=== PATIENT | male | born 1960 | race Caucasian/White ===

== ENCOUNTER → 2016-05-05 | Outpatient (CLI) | payer MEDICAID ==
--- NOTE | 2016-05-05 10:55 | CPEKG ---
Heart Rate: 86 RR Interval: 698 P-R Interval: 144 QRSD Interval: 98 QT Interval: 408 QTC Interval: 488 P Carlton: 79 QRS Carlton: 80 T Wave Carlton: 81 EKG Severity - ABNORMAL ECG - EKG Impression: SINUS RHYTHM Electronically Signed By: Yahir Estevez 05-May-2016 14:42:50
== END ==
LOC: FCP 10:44
PROVIDERS: ATTEND Surgery
DX: Z01.818 Encounter for other preprocedural examination (principal); R94.31 Abnormal electrocardiogram [ECG] [EKG]

== ENCOUNTER → 2016-05-12 | Day surgery (SDC) | payer MEDICAID ==
[~2016-05-12] MED LIST: BUPIVACAINE/EPI 0.5% 30 ML SDV ONE; SKIN ADHESIVE (DERMABOND) 1 EACH TP ONE
== END | disposition home or self-care (01) ==
LOC: FSGY 10:42
PROVIDERS: ATTEND Surgery
DX: Z53.29 Procedure and treatment not carried out because of patient's decision for other reasons (principal)

== ENCOUNTER 2016-05-25 13:58 | Emergency (ER) | payer MEDICAID ==
[2016-05-25 14:03] VITALS: PULSE 82; TEMP 97.9
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
[2016-05-25 15:38] VITALS: BP 129/97; RESP 18; O2SAT 92
== END 2016-05-25 15:38 | disposition home or self-care (01) ==
LOC: EEVIPCON 13:58
DX: S29.9XXA Unspecified injury of thorax, initial encounter (principal); J44.9 Chronic obstructive pulmonary disease, unspecified; I10 Essential (primary) hypertension; F17.200 Nicotine dependence, unspecified, uncomplicated; V28.0XXA Motorcycle driver injured in noncollision transport accident in nontraffic accident, initial encounter; Y99.8 Other external cause status; Y93.55 Activity, bike riding

== ENCOUNTER 2016-09-15 08:20 | Emergency (ER) | payer MEDICAID ==
[2016-09-15 08:29] VITALS: BP 136/98; PULSE 82; RESP 18; TEMP 97.3; O2SAT 92
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
== END 2016-09-15 09:15 | disposition home or self-care (01) ==
DX: S62.515A Nondisplaced fracture of proximal phalanx of left thumb, initial encounter for closed fracture (principal); F17.200 Nicotine dependence, unspecified, uncomplicated; V18.0XXA Pedal cycle driver injured in noncollision transport accident in nontraffic accident, initial encounter
CPT/HCPCS: L3807

== ENCOUNTER 2016-11-27 08:42 | Day surgery (SDC) | payer MEDICAID ==
[2016-11-27] MEDS ORDERED: LR 1,000 ML IV ONE (09:10)
[2016-11-27] MEDS ORDERED: LIDOCAINE 1% 2 ML INJ ID PRN (09:10)
--- NOTE | 2016-11-27 09:38 | PDANEPAE ---
ANE History of Present Illness 56 year old male for upper and lower endoscopy. ANE Past Medical History - Cardiovascular History Hx Hypertension: Yes Hx Arrhythmias: No Hx Chest Pain: No Hx Coronary Artery / Peripheral Vascular Disease: No Hx CHF / Valvular Disease: No Hx Palpitations: No - Pulmonary History Hx COPD: No Hx Asthma/Reactive Airway Disease: No Hx Recent Upper Respiratory Infection: No Hx Oxygen in Use at Home: No Hx Sleep Apnea: No - Neurologic History Hx Cerebrovascular Accident: No Hx Seizures: No Hx Dementia: No - Endocrine History Hx Diabetes: No Hypothyroid: No Hyperthyroid: No Obesity: no - Renal History Hx Renal Disorders: No - Liver History Hx Hepatic Disorders: No - Neurological & Psychiatric Hx Hx Neurological and Psychiatric Disorders: No - Cancer History Hx Cancer: No - Congenital Disorder History Hx Congenital Disorders: No - GI History GERD: no Hx Gastrointestinal Disorders: No - Other Health History Other Health History: missing teeth - Chronic Pain History Chronic Pain: No - Surgical History Prior Surgeries: hernias x 3 ANE Review of Systems Review of Systems: - Exercise capacity Exercise capacity: >=4 METS ANE Patient History - Allergies Allergies/Adverse Reactions: No Known Allergies Allergy (Verified 05/25/16 14:01) - Home Medications Home medications: home medication list seen and reviewed Home Medications: Amlodipine Besylate 05/09/16 [Last Taken Unknown] - NPO status NPO Status: no food or drink >8 hours - Anes Hx Anes Hx: no prior problems - Smoking Hx Smoking Status: Current every day smoker - Alcohol Use Alcohol Use: Occasionally - Family Anes Hx Family Anes Hx: neg - N/A Family Hx Anesthesia Complications: none ANE Labs/Vital Signs - Vital Signs Vital Signs: reviewed preoperatively; see RN documention for details ANE Physical Exam - Airway Neck exam: FROM Mallampati Score: Class 1 Mouth exam: dentures - Pulmonary Pulmonary: no respiratory distress - Cardiovascular Cardiovascular: regular rate and rhythym - ASA Status ASA Status: II ANE Anesthesia Plan Anesthesia Plan: GA with mask Total IV Anesthesia: Yes
[2016-11-27 09:41] VITALS: PULSE 60
--- NOTE | 2016-11-27 10:14 | PDGENHP ---
History and Physical History and Physical: Full H+P from office 11/24/16 CC dysphagia and colon screening Pt with solid food dysphagia and constipation to have hernia repair Sunday PE Afeb CV rrr s1s2 nl Chest CTA Abd + bs soft plan EGD colon with MAC
[2016-11-27] MEDS ORDERED: PROPOFOL/EMULSION 500 MG/50 ML BOTTLE IV ONE (10:17)
[2016-11-27] MEDS ORDERED: LR 500 ML IV PRN (10:26)
[2016-11-27] MEDS ORDERED: NALOXONE HCL 0.4 MG/ML INJ IVP PRN (10:26)
[2016-11-27] MEDS ORDERED: fentaNYL 100 MCG/2 ML INJ IVP PRN (10:26)
--- NOTE | 2016-11-27 10:49 | POSTOPPROG ---
Post Op Note Date of Operation: 11/27/16 Surgeon: Sandee Cardoza Pre-op Diagnosis: dysphagia Post-op Diagnosis: EoE colon polyp Indication: dysphagia Procedure: egd colon Inf/Abcess present in the surg proc area at time of surgery?: No Complications: none
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
--- NOTE | 2016-11-27 11:14 | GIREPORT ---
[facility] Surgical Services - Endoscopy Department Patient Name: Atif Parac Procedure Date: 11/27/2016 10:19 AM Patient Type: Outpatient Attending / ER Physician: Sandee Cardoza MD Procedure: Upper GI endoscopy Indications: Dysphagia Providers: Sandee Cardzoa MD Medicines: Monitored Anesthesia Care Complications: No immediate complications. Description of Procedure: After obtaining informed consent, the endoscope was passed under direct vision. Throughout the procedure, the patient's blood pressure, pulse, and oxygen saturations were monitored continuously. The Endoscope was intro duced through the mouth, and advanced to the second part of duodenum. [facility] GI endoscopy was accomplished without difficulty. The patient tolerated th e procedure well. Findings: Mucosal changes including ringed esophagus were found in the middle third of the esophagus. Biop sies were taken with a cold forceps for histology. Estimated blood loss was minimal. Localized moderate inflammation characterized by erythema and granularity was found in the gastr ic antrum. A single small papule (nodule) with no stigmata of recent bleeding was found in the gastric antr um. Biopsies were taken with a cold forceps for histology. Estimated blood loss was minimal. The examined duodenum was normal. Estimated Blood Loss: Estimated blood loss was minimal. Post Op Diagnosis: - Esophageal mucosal changes suggestive of eosinophilic esophagitis. Biopsied. - Gastritis. - A single papule (nodule) found in the stomach. Biopsied. - Normal examined duodenum. Recommendation: - Await pathology results. - Patient has a contact number available for emergencies. The signs and symptoms of potential de layed complications were discussed with the patient. Return to normal activities tomorrow. Written discharge instructions were provided to the patient. - Resume previous diet. - Continue present medications. - Use Prilosec OTC 20 mg PO daily. Consider inhaled Flovent. - Discharge patient to home. Attending Participation: I personally performed the entire procedure. Sandee Cardoza MD Sandee Cardoza MD 11/27/2016 11:14:10 AM Number of Addenda: 0 Note Initiated On: 11/27/2016 10:19 AM [email or web address]
--- NOTE | 2016-11-27 12:24 | POSTANESTH ---
Post Anesthetic Evaluation Cardiovascular Status: Normal, Stable, Similar to Pre-Op Cond Respiratory Status: Normal, Stable, Similar to Pre-op Cond. Level of Consciousness/Mental Status: Can Participate in Eval, Alert and Oriented Pain Control: Adequate, Prn Tx Ordered Nausea/Vomiting Control: Adequate, Prn Tx Ordered Complications Possibly Related to Anesthesia: None Noted
[2016-11-27 12:28] VITALS: BP 180/103; RESP 16; TEMP 97.2; O2SAT 98
== END 2016-11-27 12:48 | disposition home or self-care (01) ==
LOC: FSGY 08:42
PROVIDERS: ATTEND Internal Medicine Gastroenterology
PROC: 0DBP8ZX Excision of Rectum, Via Natural or Artificial Opening Endoscopic, Diagnostic (ICD-10-PCS; principal; 2016-11-27 10:00)
PROC: 0DB58ZX Excision of Esophagus, Via Natural or Artificial Opening Endoscopic, Diagnostic (ICD-10-PCS; principal; 2016-11-27 10:00)
PROC: 0DB68ZX Excision of Stomach, Via Natural or Artificial Opening Endoscopic, Diagnostic (ICD-10-PCS; principal; 2016-11-27 10:00)
DX: Z12.11 Encounter for screening for malignant neoplasm of colon (principal); R13.10 Dysphagia, unspecified; K59.00 Constipation, unspecified; I10 Essential (primary) hypertension; Z87.891 Personal history of nicotine dependence; K29.50 Unspecified chronic gastritis without bleeding
CPT/HCPCS: J2704